=== PATIENT | female | born 1955 | race African-American/Black ===

== ENCOUNTER 2017-11-13 12:53 | Emergency (ER) | payer OTHER ==
[~2017-11-13] VITALS: Ht 167.6 cm; Wt 77.1 kg
[~2017-11-13 12:53] MED LIST: BENICAR HCT 401 EACH PO; METOPROLOL SUC100 MG PO; NIFEDICAL XL60 MG PO
[2017-11-13] MEDS ORDERED: ZETIA10 MG PO (13:50)
[2017-11-13] MEDS ORDERED: SODIUM CHLORIDE 0.9% 500ML 500 ML IV ONE (19:30)
[2017-11-13 19:44] LABS: BASOPHILS # (AUTO) 0.1 (0.0-0.1); BASOPHILS % 0.7 % (0.0-1.0); EOSINOPHILS # (AUTO) 0.1 (0.0-0.4); EOSINOPHILS % 0.7 % (0.0-6.0); HEMATOCRIT 38.7 % (34.2-44.1); HEMOGLOBIN 13.2 g/dL (12.0-16.0); LYMPHOCYTES # (AUTO) 3.8 (1.0-3.2); LYMPHOCYTES % 55.1 % (18.0-39.1); MEAN CORPUSCULAR HEMOGLOBIN 34.6 pg (28-32); MEAN CORPUSCULAR HGB CONC 34.1 g/dL (31-35); MEAN CORPUSCULAR VOLUME 101.3 fL (81-99); MONOCYTES # (AUTO) 0.6 (0.2-0.8); MONOCYTES % 8.3 % (4.4-11.3); NEUTROPHILS # (AUTO) 2.4 (2.1-6.9); NEUTROPHILS % 35.1 % (38.7-80.0); PLATELET COUNT 255 x10e3/uL (140-360); RED BLOOD COUNT 3.82 x10e6/uL (3.6-5.1); RED CELL DISTRIBUTION WIDTH 12.8 % (11.7-14.4)
[2017-11-13 19:48] LABS: INR 0.87; PROTHROMBIN TIME 12.3 seconds (11.9-14.5)
[2017-11-13] MEDS ORDERED: ONDANSETRON HCL INJ 2 MG/ML VIAL IV STA (19:51)
[2017-11-13] MEDS ORDERED: MORPHINE SULFATE 2 MG/ML SYR IV STA (19:51)
[2017-11-13] MEDS ORDERED: SODIUM CHLORIDE 0.9% 1000ML 1,000 ML IV STA (19:51)
[2017-11-13] MEDS ORDERED: PANTOPRAZOLE 40 MG 10ML VIAL IV STA (19:51)
[2017-11-13] MEDS ORDERED: METOPROLOL SUCC50 MG PO (19:52)
[2017-11-13 19:55] LABS: BILIRUBIN,URINE NEGATIVE (NEGATIVE); KETONES,URINE NEGATIVE (NEGATIVE); LEUKOCYTE ESTERASE ,URINE NEGATIVE (NEGATIVE); NITRITE,URINE NEGATIVE (NEGATIVE); URINE UROBILINOGEN 0.2 mg/dL (0.2 - 1)
[2017-11-13 19:56] LABS: ALBUMIN 3.6 g/dL (3.5-5.0); ALBUMIN/GLOBULIN RATIO 0.6 (0.8-2.0); ANION GAP 15.6 mmol/L (8-16); CALCIUM 9.3 mg/dL (8.4-10.2); CREATININE, SERUM 1.79 mg/dL (0.57-1.11); MAGNESIUM 1.8 MG/DL (1.3-2.1); POTASSIUM 3.6 mmol/L (3.5-5.1)
[2017-11-13 19:59] LABS: CLARITY,URINE SL CLOUDY (CLEAR); COLOR,URINE YELLOW (YELLOW); PROTEIN,URINE DIPSTICK 2+ (NEGATIVE)
[2017-11-13 20:03] LABS: CREATINE KINASE MB 2.1 ng/mL (0.00-5.00); TROPONIN I 0.036 ng/mL (0-0.300)
[2017-11-13 20:10] LABS: EPITHELIAL CELLS,URINE MODERATE /LPF; TRANSITIONAL EPI CELLS,URINE FEW; WBC,URINE (MAN) 0-5 /HPF (0-5)
--- NOTE | 2017-11-13 20:26 | Diagnostic Imaging Report ---
EXAM: XR CHEST 2 VIEWS DATE: 11/13/2017 7:25 PM INDICATION: Chest pain COMPARISON: None FINDINGS: Lines and Tubes: None Heart and Mediastinum: No acute findings. Lungs and Pleura: No acute findings. Bones and Soft Tissues: No acute findings. IMPRESSION: 1. No acute cardiopulmonary findings. Signed by: Dr. Sterling Quiñones MD on 11/13/2017 8:23 PM
[2017-11-13 22:01] LABS: EOSINOPHILS % (MANUAL) 3 % (0-7); LYMPHOCYTES % (MANUAL) 54 % (19-48); MONOCYTES % (MANUAL) 13 % (3.4-9.0); NEUTROPHILS % (MANUAL) 30 % (40-74); PLATELET ESTIMATE ADEQUATE; PLATELET MORPHOLOGY COMMENT NORMAL
[2017-11-13 22:03] LABS: RBC MORPHOLOGY COMMENT NORMAL
[2017-11-13 22:04] LABS: ANISOCYTOSIS SLIGHT
[2017-11-13 22:17] VITALS: BP 161/85
== END 2017-11-13 22:28 | disposition home or self-care (01) ==
LOC: ER 12:53
DX: R05 Cough (principal); R19.7 Diarrhea, unspecified; E86.0 Dehydration; J20.9 Acute bronchitis, unspecified; I10 Essential (primary) hypertension; N28.9 Disorder of kidney and ureter, unspecified
CPT/HCPCS: 36415; 71020; 80053; 81001; 82550; 82553; 83605; 83735; 83880; 84484; 85025; 85610; 85730; 87040; 87086; 87400; 93005; 96360; 96374; 99284; J2270; J2405; J7030; J7040

== ENCOUNTER 2025-04-22 14:17 | Inpatient (IN) | payer MEDICARE, OTHER ==
[~2025-04-22] VITALS: Ht 167.6 cm; Wt 68.0 kg
[~2025-04-22 14:17] MED LIST changes: +METOPROLOL SUCC50 MG PO; +ZETIA10 MG PO
[2025-04-22 14:28] VITALS: PULSE 64; RESP 18; TEMP 98.5
[2025-04-22 15:17] LABS: BASOPHILS % 0.3 % (0.0-1.0); EOSINOPHILS % 1.2 % (0.0-6.0); LYMPHOCYTES % 35.9 % (18.0-39.1); MONOCYTES % 10.9 % (4.4-11.3); NEUTROPHILS % 51.5 % (38.7-80.0); RED CELL DISTRIBUTION WIDTH 14.7 % (11.7-14.4)
[2025-04-22 15:32] LABS: EST GLOMERULAR FILTRATION RATE 16.0 ML/MIN (>=60)
[2025-04-22] MEDS ORDERED: ONDANSETRON HCL INJ 2MG/ML 2ML 2 MG/ML VIAL IV PRN (16:30)
[2025-04-22] MEDS ORDERED: HYDRALAZINE HCL50 MG PO (17:51)
[2025-04-22] MEDS ORDERED: ROSUVASTATIN CA20 MG PO (17:52)
[2025-04-22 17:53] LABS: LEUKOCYTE ESTERASE ,URINE NEGATIVE (NEGATIVE); PROTEIN,URINE DIPSTICK 1+ (NEGATIVE); URINE UROBILINOGEN 0.2 mg/dL (0.2 - 1)
[2025-04-22] MEDS ORDERED: LISINOPRIL10 MG PO (17:53)
[2025-04-22 17:59] VITALS: BP 140/80; PULSE 76; RESP 18; TEMP 97.6; O2SAT 100
[2025-04-22 17:59] LABS: EPITHELIAL CELLS,URINE MODERATE /LPF; WBC,URINE (MAN) 0-5 /HPF (0-5)
[2025-04-22] MEDS ORDERED: RAYALDEE30 MCG PO (17:59)
[2025-04-22 18:00] LABS: YEAST,URINE FEW
[2025-04-22] MEDS: SODIUM CHLORIDE 0.9% 1000ML 1,000 ML IV SCH (18:25)
[2025-04-22] MEDS ORDERED: ALBUTEROL/IPRATROPIUM 3 ML NEB NEB PRN (18:30)
[2025-04-22] MEDS ORDERED: ACETAMINOPHEN 325 MG TAB PO PRN (18:30)
[2025-04-22] MEDS: METOPROLOL TARTRATE 25 MG TAB PO SCH (18:42)
[2025-04-22] MEDS: FLUCONAZOLE 100 MG TAB PO ONE (18:42)
[2025-04-22 19:57] LABS: PHOSPHORUS 3.6 MG/DL (2.3-4.7)
[2025-04-22 20:00] VITALS: BP 149/90; PULSE 75; RESP 17; TEMP 97.7; O2SAT 97
[2025-04-22 21:00] VITALS: BP 149/90; PULSE 75; RESP 17; TEMP 97.7; O2SAT 97
[2025-04-23] VITALS (9 sets, daily range): BP systolic 128–166; BP diastolic 67–88; PULSE 68–75; RESP 18–20; TEMP 97.2–98.5; O2SAT 95–100
[2025-04-23 06:21] LABS: BASOPHILS % 0.5 % (0.0-1.0); EOSINOPHILS % 1.8 % (0.0-6.0); LYMPHOCYTES % 49.1 % (18.0-39.1); MONOCYTES % 9.8 % (4.4-11.3); NEUTROPHILS % 38.6 % (38.7-80.0); RED CELL DISTRIBUTION WIDTH 14.7 % (11.7-14.4)
[2025-04-23 06:45] LABS: EST GLOMERULAR FILTRATION RATE 21.0 ML/MIN (>=60)
[2025-04-23] MEDS: FLUCONAZOLE 100 MG TAB PO SCH (09:12)
[2025-04-23] MEDS: PANTOPRAZOLE SODIUM 20 MG TABLET.DR PO SCH (09:12)
[2025-04-23] MEDS: CRESTOR 10MG PO SCH (14:18)
[2025-04-23] MEDS: AMLODIPINE BESYLATE 5 MG TAB PO ONE (14:18)
[2025-04-23] MEDS: HYDRALAZINE HCL 25 MG TAB PO SCH (14:18)
[2025-04-23] MEDS: HYDRALAZINE HCL 20 MG/ML VIAL IV PRN (18:13)
[2025-04-24] VITALS (9 sets, daily range): BP systolic 139–179; BP diastolic 65–88; PULSE 69–92; RESP 16–20; TEMP 97.5–98.6; O2SAT 97–100
[2025-04-24] MEDS: LORAZEPAM 1 MG TAB PO PRN (01:00)
[2025-04-24 06:20] LABS: EST GLOMERULAR FILTRATION RATE 24.0 ML/MIN (>=60)
[2025-04-24] MEDS: AMLODIPINE BESYLATE 5 MG TAB PO SCH (09:00)
[2025-04-24] MEDS: METOPROLOL TARTRATE 25 MG TAB PO SCH (14:16)
[2025-04-25] VITALS (10 sets, daily range): BP systolic 137–181; BP diastolic 69–92; PULSE 64–76; RESP 16–20; TEMP 98–98.3; O2SAT 93–100
[2025-04-25 06:11] LABS: EST GLOMERULAR FILTRATION RATE 27.0 ML/MIN (>=60)
[2025-04-25] MEDS: METOPROLOL SUCCINATE 50 MG TAB XL PO SCH (20:46)
[2025-04-26] VITALS (8 sets, daily range): BP systolic 154–164; BP diastolic 75–88; PULSE 66–87; RESP 18; TEMP 97.5–98.2; O2SAT 95–100
[2025-04-26 06:00] LABS: BASOPHILS % 0.5 % (0.0-1.0); EOSINOPHILS % 3.7 % (0.0-6.0); LYMPHOCYTES % 39.3 % (18.0-39.1); MONOCYTES % 9.4 % (4.4-11.3); NEUTROPHILS % 46.9 % (38.7-80.0); RED CELL DISTRIBUTION WIDTH 14.6 % (11.7-14.4)
[2025-04-26] MEDS: NIFEDIPINE CR 30 MG TAB PO SCH (06:11)
[2025-04-26 06:26] LABS: EST GLOMERULAR FILTRATION RATE 24.0 ML/MIN (>=60)
[2025-04-26] MEDS: HYDRALAZINE HCL 25 MG TAB PO SCH (09:45)
[2025-04-27 03:38] VITALS: BP 158/75; PULSE 71; RESP 18; TEMP 98.3; O2SAT 96
[2025-04-27 06:34] LABS: EST GLOMERULAR FILTRATION RATE 19.0 ML/MIN (>=60)
[2025-04-27 07:46] VITALS: BP 138/80; PULSE 82; RESP 18; TEMP 98; O2SAT 98
[2025-04-27] MEDS: LACTATED RINGER'S 1,000 ML INJ SCH (11:12)
[2025-04-27 11:37] VITALS: BP 122/74; PULSE 87; RESP 18; TEMP 97.7; O2SAT 99
[2025-04-27] MEDS: HYDRALAZINE HCL 100 MG TABLET PO SCH (15:07)
[2025-04-27 15:51] VITALS: BP 133/77; PULSE 84; RESP 18; TEMP 97.5; O2SAT 97
[2025-04-27] MEDS: CARVEDILOL 3.125 MG TAB PO SCH (17:21)
[2025-04-27 20:00] VITALS: BP 130/70; PULSE 95; RESP 20; TEMP 98.6; O2SAT 93
[2025-04-27] MEDS: HYDRALAZINE HCL 25 MG TAB PO SCH (20:43)
[2025-04-28] VITALS: BP 122/69; PULSE 93; RESP 20; TEMP 98.7; O2SAT 92
[2025-04-28 04:00] VITALS: BP 121/58; PULSE 81; RESP 20; TEMP 98.6; O2SAT 100
[2025-04-28 06:24] LABS: EST GLOMERULAR FILTRATION RATE 25.0 ML/MIN (>=60)
[2025-04-28 09:00] VITALS: BP 121/60; PULSE 70; RESP 20; TEMP 98.6; O2SAT 100
[2025-04-28 09:16] VITALS: BP 124/66; PULSE 82; RESP 18; TEMP 99; O2SAT 97
[2025-04-28 11:30] VITALS: BP 127/68; PULSE 97; RESP 18; TEMP 98; O2SAT 96
== END 2025-04-28 11:29 | disposition home or self-care (01) | DRG 683 ==
LOC: ER 14:38 → ERHOLD 16:53 → MED/SURG3 17:41 → OBSVTOIN 18:30 → MED/SURG2 04-25 16:13
PROVIDERS: ADMIT Internal Medicine; ATTEND Internal Medicine
DX: N17.9 Acute kidney failure, unspecified (principal); E87.20 Acidosis, unspecified; N39.0 Urinary tract infection, site not specified; I31.39 Other pericardial effusion (noninflammatory); I50.30 Unspecified diastolic (congestive) heart failure; I13.0 Hypertensive heart and chronic kidney disease with heart failure and stage 1 through stage 4 chronic kidney disease, or unspecified chronic kidney disease; E86.0 Dehydration; R80.9 Proteinuria, unspecified; R53.81 Other malaise; N18.32 Chronic kidney disease, stage 3b; B37.9 Candidiasis, unspecified; E04.1 Nontoxic single thyroid nodule; I16.0 Hypertensive urgency; I25.10 Atherosclerotic heart disease of native coronary artery without angina pectoris; L94.2 Calcinosis cutis; L94.9 Localized connective tissue disorder, unspecified; E78.00 Pure hypercholesterolemia, unspecified; Z87.891 Personal history of nicotine dependence
CPT/HCPCS: 36415; 71250; 76770; 76857; 80048; 80053; 81001; 82607; 82746; 83036; 83735; 84100; 84443; 84484; 85025; 93005; 93306; 94799; 99252; J0360; J0696; J2470; J7030